=== PATIENT | male | born 1955 | race Caucasian/White ===

== ENCOUNTER 2021-05-31 05:43 | Emergency (ER) | payer SELFPAY ==
[~2021-05-31] VITALS: Ht 190.5 cm; Wt 106.8 kg
[2021-05-31 05:44] VITALS: BP 180/118
[2021-05-31] MEDS ORDERED: LIDOCAINE 2% 5ML JELLY UROJET TOP ONE (07:05)
[2021-05-31] MEDS ORDERED: BACT800T5 PO (14:23)
== END 2021-05-31 07:24 | disposition left against medical advice (07) ==
LOC: M ED 05:43
DX: R33.9 Retention of urine, unspecified (principal); Z53.9 Procedure and treatment not carried out, unspecified reason

== ENCOUNTER 2021-05-31 12:07 | Emergency (ER) | payer SELFPAY ==
[~2021-05-31] VITALS: Ht 190.5 cm; Wt 106.8 kg
[2021-05-31 14:07] VITALS: BP 178/92
[2021-05-31] MEDS ORDERED: BACT800T5 PO (14:23)
== END 2021-05-31 14:35 | disposition home or self-care (01) ==
LOC: M ED 12:07
DX: N40.1 Benign prostatic hyperplasia with lower urinary tract symptoms (principal); R33.9 Retention of urine, unspecified